=== PATIENT | female | born 1960 | race Hispanic/Latino ===

== ENCOUNTER 2021-08-28 12:40 | Emergency (ER) | payer MEDICAID ==
[~2021-08-28] VITALS: Ht 144.8 cm; Wt 71.7 kg
[2021-08-28 13:21] LABS: BASOPHILS % (AUTO) 0.5 % (0.0-5.0); EOSINOPHILS % (AUTO) 0.9 % (0.0-8.0); HEMATOCRIT 39.6 % (36-48); LYMPHOCYTES % (AUTO) 32.1 % (21.0-51.0); MEAN CORPUSCULAR HEMOGLOBIN 28.5 pg (27.0-33.0); MEAN CORPUSCULAR HGB CONC 31.6 g/dL (32.0-36.0); MEAN CORPUSCULAR VOLUME 90.4 fL (79-99); MONOCYTES % (AUTO) 6.9 % (3.0-13.0); NEUTROPHILS % (AUTO) 59.3 % (40.0-77.0); PLATELET COUNT (AUTO) 178 K/uL (130-400); RED BLOOD CELL COUNT(AUTO) 4.38 MIL/uL (4.00-5.50); RED CELL DISTRIBUTION WIDTH 12.5 % (11.0-15.5); WHITE BLOOD COUNT (AUTO) 7.7 K/uL (4.8-10.8)
[2021-08-28 13:31] LABS: CREATININE 0.5 mg/dL (0.5-1.5); POTASSIUM 3.9 mmol/L (3.5-5.1)
[2021-08-28 13:35] LABS: ALBUMIN 3.3 g/dL (3.5-5.0); BILIRUBIN,TOTAL 0.3 mg/dL (0.2-1.0); CRP QUANTITATIVE 2.2 mg/L (0.00-9.0); TOTAL PROTEIN, SERUM 7.5 g/dL (6.0-8.3)
[2021-08-28 13:41] LABS: B-TYPE NATRIURETIC PEPTIDE 37 pg/mL (0-100)
[2021-08-28] MEDS ORDERED: PHENYTOIN 100MG (50MG/ML) INJ 100 MG/2 ML ML IV SCH (14:00)
[2021-08-28] MEDS ORDERED: [UNRECOGNIZED DRUG - OTHER] IV SCH (14:00)
[2021-08-28] MEDS ORDERED: LEVETIRACETAM IV SCH (14:00)
[2021-08-28] MEDS ORDERED: [UNRECOGNIZED DRUG - OTHER] IV SCH (14:30)
[2021-08-28] MEDS ORDERED: PHENYTOIN IV SCH (14:30)
[2021-08-28] MEDS ORDERED: KETOROLAC 30MG VIAL (30MG/ML) IV ONE (15:00)
[2021-08-28] MEDS ORDERED: NAPR-1180 PO (15:46)
[2021-08-28 16:00] VITALS: BP 120/69
== END 2021-08-28 16:00 | disposition home or self-care (01) ==
LOC: EDH 12:40
DX: S16.1XXA Strain of muscle, fascia and tendon at neck level, initial encounter (principal); G40.909 Epilepsy, unspecified, not intractable, without status epilepticus; Z79.899 Other long term (current) drug therapy; Z98.890 Other specified postprocedural states; X58.XXXA Exposure to other specified factors, initial encounter; Y93.89 Activity, other specified; Y92.89 Other specified places as the place of occurrence of the external cause; Y99.8 Other external cause status
CPT/HCPCS: 36415; 70450; 71045; 72125; 80053; 80177; 80185; 83880; 84484; 85025; 86140; 93005; 96365; 96367; 96375; 99285; J1165; J1885; J1953

== ENCOUNTER 2022-09-14 12:50 | Emergency (ER) | payer MEDICAID ==
[~2022-09-14] VITALS: Ht 144.8 cm; Wt 80.7 kg
[~2022-09-14 12:50] MED LIST: NAPR-1180 PO
[2022-09-14 13:50] LABS: BASOPHILS % (AUTO) 0.5 % (0.0-5.0); HEMATOCRIT 43.1 % (36-48); LYMPHOCYTES % (AUTO) 35.5 % (21.0-51.0); MEAN CORPUSCULAR HEMOGLOBIN 29.2 pg (27.0-33.0); MEAN CORPUSCULAR HGB CONC 32.5 g/dL (32.0-36.0); MONOCYTES % (AUTO) 5.8 % (3.0-13.0); PLATELET COUNT (AUTO) 160 K/uL (130-400); RED BLOOD CELL COUNT(AUTO) 4.79 MIL/uL (4.00-5.50); RED CELL DISTRIBUTION WIDTH 12.6 % (11.0-15.5); WHITE BLOOD COUNT (AUTO) 8.2 K/uL (4.8-10.8)
[2022-09-14 14:03] LABS: CREATININE 0.7 mg/dL (0.5-1.5); POTASSIUM 3.7 mmol/L (3.5-5.1)
[2022-09-14 14:07] LABS: ALBUMIN 3.7 g/dL (3.5-5.0); TOTAL PROTEIN, SERUM 8.3 g/dL (6.0-8.3)
[2022-09-14] MEDS ORDERED: HYDROCODONE/ACETAMINOPHEN 5/325 MG TAB PO ONE (15:00)
[2022-09-14] MEDS ORDERED: HYDROCODONE/ACETAMINOPHEN 5/325 MG TAB ONE (15:15)
[2022-09-14 15:30] LABS: APPEARANCE,URINE CLEAR (CLEAR); BILIRUBIN,URINE NEGATIVE (NEGATIVE); COLOR,URINE LIGHT-YELLOW (YELLOW); GLUCOSE, URINE (UA) NEGATIVE (NEGATIVE); KETONES,URINE NEGATIVE (NEGATIVE); LEUKOCYTE ESTERASE ,URINE 75 Leu/uL (NEGATIVE); NITRATE,URINE NEGATIVE (NEGATIVE); PH,URINE 5.5 (5.0-8.0); PROTEIN,URINE NEGATIVE (NEGATIVE); UROBILINOGEN,URINE 0.2 mg/dL (0.2-1.0)
[2022-09-14 15:42] LABS: SQUAMOUS EPITHELIAL CELL,UR RARE /HPF (0-2)
[2022-09-14 17:16] VITALS: BP 115/78
== END 2022-09-14 17:17 | disposition home or self-care (01) ==
LOC: EDH 12:50
DX: G40.909 Epilepsy, unspecified, not intractable, without status epilepticus (principal); M19.90 Unspecified osteoarthritis, unspecified site
CPT/HCPCS: 36415; 71045; 73562; 80053; 81001; 84484; 85025; 87088; 93005

== ENCOUNTER 2022-12-29 11:56 | Emergency (ER) | payer MEDICAID ==
[~2022-12-29] VITALS: Ht 165.1 cm; Wt 77.1 kg
[2022-12-29 12:37] LABS: BASOPHILS % (AUTO) 0.5 % (0.0-5.0); EOSINOPHILS % (AUTO) 0.7 % (0.0-8.0); HEMATOCRIT 42.1 % (36-48); LYMPHOCYTES % (AUTO) 38.6 % (21.0-51.0); MEAN CORPUSCULAR HGB CONC 32.3 g/dL (32.0-36.0); MEAN CORPUSCULAR VOLUME 89.8 fL (79-99); MONOCYTES % (AUTO) 6.3 % (3.0-13.0); NEUTROPHILS % (AUTO) 53.6 % (40.0-77.0); PLATELET COUNT (AUTO) 174 K/uL (130-400); RED BLOOD CELL COUNT(AUTO) 4.69 MIL/uL (4.00-5.50); RED CELL DISTRIBUTION WIDTH 12.5 % (11.0-15.5); WHITE BLOOD COUNT (AUTO) 7.5 K/uL (4.8-10.8)
[2022-12-29 12:46] LABS: CREATININE 0.6 mg/dL (0.5-1.5)
[2022-12-29 12:53] LABS: ALBUMIN 3.5 g/dL (3.5-5.0)
[2022-12-29] MEDS ORDERED: KETOROLAC 60 MG VIAL (30MG/ML) IM ONE (13:30)
[2022-12-29 16:25] VITALS: BP 133/90
== END 2022-12-29 16:31 | disposition home or self-care (01) ==
LOC: EDH 11:56
DX: R07.89 Other chest pain (principal); G89.29 Other chronic pain; M17.12 Unilateral primary osteoarthritis, left knee; M25.562 Pain in left knee; F41.9 Anxiety disorder, unspecified
CPT/HCPCS: 99285; 71045; 84484 ×2; 80053; 85025; 36415; 96372; 93005 ×2; J1885

== ENCOUNTER 2023-11-21 10:11 | Emergency (ER) | payer MEDICAID ==
[~2023-11-21] VITALS: Ht 144.8 cm; Wt 82.6 kg
[2023-11-21 10:12] VITALS: BP 138/72; PULSE 67; RESP 16
[2023-11-21] MEDS: OXYMETAZOLINE HCL SPRAY 15 ML BOTTLE EN SCH (11:07)
== END 2023-11-21 11:17 | disposition home or self-care (01) ==
LOC: EDH 10:11
DX: R04.0 Epistaxis (principal); Z98.890 Other specified postprocedural states
CPT/HCPCS: 99282

== ENCOUNTER 2025-05-09 12:36 | Emergency (ER) | payer MEDICAID ==
[~2025-05-09] VITALS: Ht 152.4 cm; Wt 63.5 kg
--- NOTE | 2025-05-09 13:18 | EKG ---
[facility] Test Date: 2025-05-09 Test Time: 13:12:39 Pat [facility] Room: Gender: F Him Coder: [id number] : [id number] Requested By: ELIZABETH ESCALONA Order Number: [id number] Reading MD: Riya Charles Measurements Intervals [place] Rate: 56 P: 44 VT: 172 QRS: 14 QRSD: 96 T: 13 QT: 425 QTc: 412 Interpretive Statements Sinus rhythm Low voltage, precordial leads Compared to ECG 12/29/2022 14:44:19 Low QRS voltage now present Electronically Signed On 05-09-2025 15:42:17 CERTIFIED CODING SPECIALIST by Riya Charles Please click the below link to view image of tracing.
[2025-05-09 13:24] LABS: IMMATURE GRANULOCYTE ABSOLUTE 0.03 K/uL (0-1); NUCLEATED RED BLOOD CELLS 0.0 % (0.0-0.19); PLATELET COUNT (AUTO) 170 K/uL (130-400); RED BLOOD CELL COUNT(AUTO) 4.61 MIL/uL (4.00-5.50); RED CELL DISTRIBUTION WIDTH 12.9 % (11.0-15.5); WHITE BLOOD COUNT (AUTO) 7.5 K/uL (4.8-10.8)
[2025-05-09 13:37] LABS: CREATINE KINASE, TOTAL 62.0 U/L (21-232); CREATININE 0.7 mg/dL (0.5-1.0); GLOMERULAR FILTR. RATE CALC 97.0 mL/min (>90); GLUCOSE,RANDOM 98.0 mg/dL (70-105); SODIUM SERUM 138.0 mmol/L (136-145); UREA NITROGEN, BLOOD 11.0 mg/dL (7-18)
[2025-05-09 13:39] LABS: INR 1.01 (0.85-1.15)
--- NOTE | 2025-05-09 14:50 | HMCIMG ---
EXAM: CT Head Without IV contrast. CLINICAL HISTORY: altered gait TECHNIQUE: Axial computed tomography images of the head/brain without intravenous contrast. COMPARISON: None provided. FINDINGS: BRAIN: There is relative asymmetry of the left cerebral hemisphere that is of unknown clinical significance. No evidence of acute hemorrhage. No mass lesion. No CT evidence for acute territorial infarct. No midline shift or extra-axial collections. VENTRICLES: No hydrocephalus. ORBITS: The orbits are unremarkable. SINUSES AND MASTOIDS: The paranasal sinuses and mastoid air cells are clear. BONES: No fracture. SOFT TISSUES: Unremarkable. IMPRESSION: 1. No acute intracranial findings. 2. Relative asymmetry of the left cerebral hemisphere is of unknown clinical significance. If clinically warranted recommend contrast-enhanced MRI imaging of the brain for further evaluation. /[place]
--- NOTE | 2025-05-09 14:52 | HMCIMG ---
EXAM: CR Chest, 1 View. CLINICAL HISTORY: cp COMPARISON: None provided. FINDINGS: LUNGS: There is no mass, infiltrate, or acute pulmonary abnormality. PLEURAL SPACES: No pleural effusion or pneumothorax. MEDIASTINUM: The cardiomediastinal silhouette is within normal limits. BONES: No aggressive appearing osseous lesion seen. IMPRESSION: No acute cardiopulmonary pathology is evident. /[place]
--- NOTE | 2025-05-09 16:01 | ERN ---
General Chief Complaint: Weakness Stated Complaint: WEAKNESS Time Seen by MD: 12:41 Time Seen by Midlevel: 12:41 Source: patient History of Present Illness Initial Comments 64-year-old female presents to the ER for evaluation of chest pain started prior to arrival. The patient is a poor historian. The patient was brought in via EMS and they report a poor history from both the family who was on site and the patient. On arrival with the patient does report having chest pain but she states it has been ongoing for over a year. Denies any other symptoms. Allergies: Coded Allergies: No Known Allergies (Unverified Allergy, Unknown, 08/28/21) Home Meds Active Scripts Naproxen (Naprosyn) 500 Mg Tablet, 500 MG PO BIDPC, #60 TAB Prov:LUCAS SINGH 08/28/21 Past Medical History Past Medical History: Anxiety, Arthritis, CVA, Depression, Seizure, Stroke Medical History Other: CHRONIC LEFT KNEE PAIN Past Surgical History: Unknown Surgical History Other: LEFT HAND Family History Family History: Negative Social History Social History: Negative, Lives with family Female( History) History: Not Applicable ROS Dictation CONSTITUTIONAL: Negative except for HPI HEAD/FACE: Negative except for HPI EENT: Negative except for HPI RESPIRATORY: Negative except for HPI GASTROINTESTINAL/ABDOMINAL: Negative except for HPI GENITOURINARY: Negative except for HPI MUSCULOSKELETAL: Negative except for HPI INTEGUMENTARY: Negative except for HPI NEUROLOGICAL/PSYCH: Negative except for HPI HEMATOLOGIC/LYMPHATIC: Negative except for HPI All Systems Negative, Except as noted above. 13 point review of systems assessed and all negative except for above. Physical Exam Physical Exam Dictation Vital Signs reviewed General Appearance: Alert, oriented x 3, no acute distress, well developed, nourished. Head and Face: non-traumatic. Eyes: PERRL, pink conjunctivas, eyelid no trauma, anterior chamber with arcus senilis. Ears: Pinnas intact and no signs of trauma or erythema ear canals clear and no discharge TM no erythema Nose: No discharge, no bleeding. Oropharynx: Mouth normal, tongue pink, pharynx clear,no erythema, tonsils no exudates, no abscesses noted, mucous membrane moist Neck: Supple, non-tender, no thyromegaly, no masses, no JVD, no bruits Breast:Deferred Chest:No tenderness, no crepitus, no paradoxical movement, no retractions Lungs:Clear, well-ventilated, symmetric, no rales, no wheezing, no rhonchi, no stridor, good breath sounds bilaterally Heart: Regular rate, regular rhythm, no murmur, no gallops Vascular: no peripheral edema, Abdomen: Soft, positive bowel sounds, nondistended, no guarding, nontender, no rebound, no masses no hepatomegaly, no splenomegaly, no Olivo's sign, no hernias. Rectal: Deferred Genital: Deferred Neurological: Normal speech, motor function intact, sensory function intact Musculoskeletal: Neck nontender, full range of motion, back nontender, full range of motion, Extremities: nontender, full range of motion Skin: Color pink, dry, no turgor, no rash, no lacerations, no abrasions, no contusions. Lymphatic: Deferred Results Laboratory and Microbiology Lab and Micro Result Laboratory Tests Test 05/09/25 13:13 White Blood Count 7.5 K/uL (4.8-10.8) Red Blood Count 4.61 MIL/uL (4.00-5.50) Hemoglobin 13.6 g/dL (12.0-16.0) Hematocrit 42.7 % (36-48) Mean Corpuscular Volume 92.6 fL (79-99) Mean Corpuscular Hemoglobin 29.5 pg (27.0-33.0) Mean Corpuscular Hemoglobin Concent 31.9 g/dL (32.0-36.0) L Red Cell Distribution Width 12.9 % (11.0-15.5) Platelet Count 170 K/uL (130-400) Mean Platelet Volume 10.2 fL (7.5-10.5) Immature Granulocyte % (Auto) 0.4 % (0-1) Neutrophils (%) (Auto) 48.8 % (40.0-77.0) Lymphocytes (%) (Auto) 42.8 % (21.0-51.0) Monocytes (%) (Auto) 5.4 % (3.0-13.0) Eosinophils (%) (Auto) 1.9 % (0.0-8.0) Basophils (%) (Auto) 0.7 % (0.0-5.0) Neutrophils # (Auto) 3.7 K/uL (1.8-7.7) Lymphocytes # (Auto) 3.2 K/uL (1.0-4.8) Monocytes # (Auto) 0.4 K/uL (0.1-1.0) Eosinophils # (Auto) 0.14 K/uL (0.00-0.70) Basophils # (Auto) 0.05 K/uL (0.00-0.20) Absolute Immature Granulocyte (auto 0.03 K/uL (0-1) Nucleated Red Blood Cells 0.0 % (0.0-0.19) Prothrombin Time 10.7 SEC (9.6-11.6) Prothromb Time International Ratio 1.01 (0.85-1.15) Activated Partial Thromboplast Time 25.6 SEC (26.3-35.5) L Sodium Level 138 mmol/L (136-145) Potassium Level 4.4 mmol/L (3.5-5.1) Chloride Level 101 mmol/L (101-111) Carbon Dioxide Level 31 mmol/L (21-32) Blood Urea Nitrogen 11 mg/dL (7-18) Creatinine 0.7 mg/dL (0.5-1.0) Glomerular Filtration Rate Calc 97 mL/min (>90) Random Glucose 98 mg/dL (70-105) Total Calcium 9.4 mg/dL (8.5-10.1) Magnesium Level 2.20 mg/dL (1.80-2.40) Total Creatine Kinase 62 U/L (21-232) Troponin I High Sensitivity 5 ng/L (4-50) B-Type Natriuretic Peptide 108 pg/mL (0-100) H Labs Reviewed?: Yes MDM MDM: Differential diagnosis: Acute coronary syndrome, dehydration, electrolyte abnormality, anemia There are no social concerns with this patient. Prescription drug management Prescriptions will include: None Medical management and examination interpretation discussions were had by me with other qualified healthcare professionals as indicated for the patient's care. ED Course Orders Procedure Category Date Status Time 12 Lead Ekg Tracing- EKG 05/09/25 Resulted Technical 13:04 B-Type Natriuretic LAB 05/09/25 Complete Peptide 13:04 Cbc With Differential LAB 05/09/25 Complete 13:04 Basic Metabolic Panel LAB 05/09/25 Complete 13:04 Creatine Kinase, Total LAB 05/09/25 Complete 13:04 Magnesium LAB 05/09/25 Complete 13:04 Troponin I High LAB 05/09/25 Complete Sensitivity 13:04 Pt And Ptt LAB 05/09/25 Complete 13:04 Chest 1vw RAD 05/09/25 Resulted 13:04 Ct Head/Brain W/O CT 05/09/25 Resulted Contrast 13:04 Vital Signs Date Time Temp Pulse Resp B/P (MAP) Pulse Ox O2 Delivery O2 Flow Rate FiO2 05/09/25 13:29 97.7 57 17 120/61 94 Room Air* 0 21 05/09/25 12:39 97.7 62 20 135/72 95 HEART Score Response (Comments) Value History: Low suspicion (0) 0 EKG: Normal 0 Age: 45-65yrs (+1) 1 Risk Factors: 1-2 risk factors (+1) 1 Initial Troponin: Normal limit (0) 0 HEART Score Risk: Low Risk for MACE (1-3) Total 2 DX & DISP Disposition: Discharge Departure Impression: Primary Impression: Non-cardiac chest pain Condition: Stable Referrals: ELIZABETH WALDEN MD (PCP) Time of Disposition: 16:01 I have reviewed the case, and I agree with, Diagnosis and Plan I performed the substantive portion of the visit. I have reviewed and personally made and approve the management plan that is documented in the note by myself or the HIPOLITO. I acknowledge for responsibility for the patient's management plan. ELIZABETH ESCALONA PAC May 09, 2025 16:01
[2025-05-09 16:12] VITALS: BP 124/63; PULSE 60; RESP 17; TEMP 97.7; O2SAT 98
== END 2025-05-09 16:31 | disposition home or self-care (01) ==
LOC: EDH 12:36
DX: R07.89 Other chest pain (principal); F41.9 Anxiety disorder, unspecified; F32.A Depression, unspecified; Z86.73 Personal history of transient ischemic attack (TIA), and cerebral infarction without residual deficits; Z79.899 Other long term (current) drug therapy; X58.XXXA Exposure to other specified factors, initial encounter; Y93.89 Activity, other specified; Y92.89 Other specified places as the place of occurrence of the external cause; Y99.8 Other external cause status
CPT/HCPCS: 36415; 70450; 71045; 80048; 82550; 83735; 83880; 84484; 85025; 85610; 85730; 93005; 99285